=== PATIENT | male | born 1965 | race Caucasian/White ===

== ENCOUNTER 2017-02-03 12:52 | Emergency (ER) | payer SELFPAY ==
[~2017-02-03] VITALS: Ht 185.4 cm; Wt 72.6 kg
[2017-02-03 13:20] LABS: BASO # 0.1 x10^3/uL (0.0-0.2); BASO % 1 % (0-3); EOS % 0 % (0-3); HEMATOCRIT 38.9 % (39.0-53.0); HEMOGLOBIN 13.6 g/dL (13.0-17.5); LYMPH # 1.1 x10^3/uL (1.0-4.8); LYMPH % 17 % (24-48); MEAN CORPUSCULAR HEMOGLOBIN 32 pg (25-35); MEAN CORPUSCULAR HGB CONC 35 g/dL (31-37); MEAN CORPUSCULAR VOLUME 92 fL (79-100); MONO % 5 % (0-9); NEUT % 77 % (31-73); PLATELET COUNT 271 x10^3/uL (140-400); RED BLOOD COUNT 4.23 x10^6/uL (4.30-5.70); RED CELL DISTRIBUTION WIDTH 15.6 % (11.5-14.5); WHITE BLOOD COUNT 6.9 x10^3/uL (4.0-11.0)
[2017-02-03 13:30] LABS: CREATININE 0.8 mg/dL (0.7-1.3); GFR 101.9; POTASSIUM 3.5 mmol/L (3.5-5.1)
[2017-02-03 13:36] LABS: ALBUMIN 3.5 g/dL (3.4-5.0); ALBUMIN/GLOBULIN RATIO 0.9 (1.0-1.7); TOTAL BILIRUBIN 0.6 mg/dL (0.2-1.0); TOTAL PROTEIN 7.2 g/dL (6.4-8.2)
[2017-02-03] MEDS ORDERED: ONDANSETRON PF 4 MG/2 ML VIAL. IV ONE (14:00)
[2017-02-03] MEDS ORDERED: LORAZEPAM 2 MG/ML VIAL. IV ONE (14:00)
[2017-02-03] MEDS ORDERED: CHLO10CA5 PO (14:51)
--- NOTE | 2017-02-03 14:51 | PHYS DOC ---
Past Medical History Past Medical History: Hypertension Additional Past Medical Histor: seizures with withdrawal Past Surgical History: No Surgical History Additional Information: PAD SMOKER Alcohol Use: Heavy Drug Use: Benzodiazepine Social History Narrative: OXYCONTIN Adult General Chief Complaint Chief Complaint: WITHDRAWL HPI HPI Patient is a 51 year old male brought from [facility] with the complaint of withdrawal symptoms. Patient states he is withdrawing from alcohol and opiates. His last opiate dose was yesterday morning and his last drink was last night. He was taking OxyContin. He does not have chronic pain, he was "just taking it to take it". Patient checked himself into [facility] this morning and then he started having uncomfortable withdrawal symptoms so he was sent to the ED. He states in the past he was given Librium which did help him with his withdrawal symptoms. He has had a withdrawal seizure in the past from alcohol. Patient describes his current symptoms as "just feeling empty inside". He has had nausea and dry heaves but has not vomited. Patient has no past medical history, no meds. Review of Systems Review of Systems Constitutional: Denies fever or chills [] Eyes: His vision has been "wavy" HENT: Denies nasal congestion or sore throat [] Respiratory: Denies cough or shortness of breath [] Cardiovascular: Denies chest pain GI: Nausea but no vomiting : Denies dysuria or hematuria [] Musculoskeletal: Denies back pain or joint pain [] Integument: Denies rash or skin lesions [] Neurologic: Denies headache, focal weakness or sensory changes [] Current Medications Current Medications Current Medications Medications (Trade) Dose Ordered Sig/[facility] Start Time Stop Time Status Last Admin Dose Admin Lorazepam (Ativan) 2 mg 1X ONCE 02/03/17 14:00 02/03/17 14:01 DC 02/03/17 13:38 2 MG Ondansetron HCl (Zofran) 4 mg 1X ONCE 02/03/17 14:00 02/03/17 14:01 DC 02/03/17 13:36 4 MG Allergies Allergies Allergies Coded Allergies Type Severity Reaction Last Updated Verified No Known Drug Allergies 05/14/14 No Physical Exam Physical Exam Constitutional: Well developed, well nourished, no acute distress, non-toxic appearance. Alert, mentating normally. Not overtly tremulous. HENT: Normocephalic, atraumatic, bilateral external ears normal, nose normal. [ ] Eyes: conjunctiva normal, no discharge. [] Neck: Normal range of motion, no stridor. [] Cardiovascular:Heart rate regular rhythm, no murmur [] Lungs & Thorax: Bilateral breath sounds clear to auscultation [] Abdomen: Bowel sounds normal, soft, no tenderness, no masses, no pulsatile masses. [] Skin: Warm, dry, no erythema, no rash. [] Extremities: No tenderness, no cyanosis, no clubbing, ROM intact, no edema. [] Neurologic: Alert and oriented X 3, normal motor function, normal sensory function, no focal deficits noted. [] Current Patient Data Vital Signs Vital Signs Date Time Temp Pulse Resp B/P Pulse Ox O2 Delivery O2 Flow Rate FiO2 02/03/17 13:00 99.0 80 21 164/102 95 Room Air 99.0 Lab Values Laboratory Tests Test 02/03/17 13:10 White Blood Count 6.9x10^3/uL (4.0-11.0) Red Blood Count 4.23x10^6/uL (4.30-5.70) L Hemoglobin 13.6g/dL (13.0-17.5) Hematocrit 38.9% (39.0-53.0) L Mean Corpuscular Volume 92fL (79-100) Mean Corpuscular Hemoglobin 32pg (25-35) Mean Corpuscular Hemoglobin Concent 35g/dL (31-37) Red Cell Distribution Width 15.6% (11.5-14.5) H Platelet Count 271x10^3/uL (140-400) Neutrophils (%) (Auto) 77% (31-73) H Lymphocytes (%) (Auto) 17% (24-48) L Monocytes (%) (Auto) 5% (0-9) Eosinophils (%) (Auto) 0% (0-3) Basophils (%) (Auto) 1% (0-3) Neutrophils # (Auto) 5.3x10^3uL (1.8-7.7) Lymphocytes # (Auto) 1.1x10^3/uL (1.0-4.8) Monocytes # (Auto) 0.3x10^3/uL (0.0-1.1) Eosinophils # (Auto) 0.0x10^3/uL (0.0-0.7) Basophils # (Auto) 0.1x10^3/uL (0.0-0.2) Sodium Level 143mmol/L (136-145) Potassium Level 3.5mmol/L (3.5-5.1) Chloride Level 103mmol/L (98-107) Carbon Dioxide Level 29mmol/L (21-32) Anion Gap 11 (6-14) Blood Urea Nitrogen 12mg/dL (8-26) Creatinine 0.8mg/dL (0.7-1.3) Estimated GFR (Cockcroft-Gault) 101.9 BUN/Creatinine Ratio 15 (6-20) Glucose Level 135mg/dL (70-99) H Calcium Level 9.0mg/dL (8.5-10.1) Total Bilirubin 0.6mg/dL (0.2-1.0) Aspartate Amino Transferase (AST) 35U/L (15-37) Alanine Aminotransferase (ALT) 32U/L (16-63) Alkaline Phosphatase 73U/L (46-116) Total Protein 7.2g/dL (6.4-8.2) Albumin 3.5g/dL (3.4-5.0) Albumin/Globulin Ratio 0.9 (1.0-1.7) L Laboratory Tests 02/03/17 13:10 Laboratory Tests 02/03/17 13:10 EKG EKG [] Radiology/Procedures Radiology/Procedures [] Course & Med Decision Making Course & Med Decision Making Pertinent Labs and Imaging studies reviewed. (See chart for details) 51-year-old male who states he is having withdrawal symptoms after discontinuing use of opiates more than 24 hours ago and alcohol about 12 hours ago. He did this because he is trying to quit. He comes from [facility] rehabilitation. I discussed with the patient checking some labs and giving him some fluids and symptomatic treatment and he is agreeable to that plan. Labs are unremarkable. Patient was given IV Zofran, IV Ativan, and a banana bag. He tolerated that well. He'll be discharged back to [facility]. [] Dragon Disclaimer Dragon Disclaimer This electronic medical record was generated, in whole or in part, using a voice recognition dictation system. Departure Departure Impression: Primary Impression: Alcohol withdrawal Additional Impression: Opiate withdrawal Disposition: HOME, SELF-CARE Condition: IMPROVED Referrals: NO PCP (PCP) Patient Instructions: Alcohol Withdrawal, [id number] Additional Instructions: Drink plenty of fluids. I have prescribed Librium to help with withdrawal symptoms, use as directed. Scripts Chlordiazepoxide Hcl 10 Mg [id number] Mg PO Q6-8HRS PRN ALCOHOL WITHDRAWAL #20 As needed for symptoms of alcohol withdrawal Do not drink alcohol or drive while taking this medication Prov:SANAM MATTHEWS MD 02/03/17 Problem Qualifiers SANAM MATTHEWS MD Feb 03, 2017 14:51
[2017-02-03] MEDS ORDERED: MULTIVIT INFUSN,ADULT 4,VIT K 10 ML, FOLIC ACID 1 MG, THIAMINE 100 MG in IV DEXTROSE 5%... IV ONE (15:30)
[2017-02-03 16:00] VITALS: BP 159/97
== END 2017-02-03 16:40 | disposition home or self-care (01) ==
LOC: ER 12:52
DX: F10.239 Alcohol dependence with withdrawal, unspecified (principal); F11.23 Opioid dependence with withdrawal; I10 Essential (primary) hypertension; F17.200 Nicotine dependence, unspecified, uncomplicated; F19.10 Other psychoactive substance abuse, uncomplicated
CPT/HCPCS: 36415; 80053; 85027; 96365; 96375; 99284; J2060; J2405

== ENCOUNTER 2017-04-16 17:30 | Emergency (ER) | payer SELFPAY ==
[~2017-04-16] VITALS: Ht 185.4 cm; Wt 74.8 kg
[~2017-04-16 17:30] MED LIST: CHLO10CA5 PO
[2017-04-16 17:49] VITALS: BP 149/86
--- NOTE | 2017-04-16 17:51 | PHYS DOC ---
Past Medical History Past Medical History: Hypertension Additional Past Medical Histor: seizures with withdrawal Past Surgical History: No Surgical History Alcohol Use: Heavy Drug Use: Benzodiazepine Adult General Chief Complaint Chief Complaint: LOWEREXTREMITY INJURY HPI HPI Patient is a 51 year old male with history of hypertension who presents today with moderate pain on his left Achilles tendon region that began an hour and a half ago after he tripped hyper -extending his left foot and fell. Patient states he heard a snap sound from his Achilles tendon region. Patient states he states he can barely walk on his left lower extremity. Review of Systems Review of Systems Constitutional: Denies fever or chills [] Eyes: Denies change in visual acuity, redness, or eye pain [] Musculoskeletal: moderate pain on his left Achilles tendon region Integument: Denies rash or skin lesions [] Neurologic: Denies headache, focal weakness or sensory changes [] Endocrine: Denies polyuria or polydipsia [] Allergies Allergies Allergies Coded Allergies Type Severity Reaction Last Updated Verified No Known Drug Allergies 05/14/14 No Physical Exam Physical Exam Constitutional: Well developed, well nourished, no acute distress, non-toxic appearance. [] HENT: Normocephalic, atraumatic, bilateral external ears normal, oropharynx moist, no oral exudates, nose normal. [] Eyes: PERRLA, EOMI, conjunctiva normal, no discharge. [] Skin: Warm, dry, no erythema, no rash. [] Back: No tenderness, no CVA tenderness. [] Extremities: Left lower extremity with moderate soft tissue swelling along the Achilles tendon. Tenderness on palpation of the left Achilles tendon region. Patient was laid on his stomach. The cuff muscle was pushed/pressed down, patient barely had any flexion of the left foot. Limited range of motion to the left ankle due to pain. +2 left pedal pulse. Cap refill less than 2 seconds the left lower extremity. Sensation intact to the left lower extremity. Neurologic: Alert and oriented X 3, normal motor function, normal sensory function, no focal deficits noted. [] Psychologic: Affect normal, judgement normal, mood normal. [] Current Patient Data Vital Signs Vital Signs Date Time Temp Pulse Resp B/P (MAP) Pulse Ox O2 Delivery O2 Flow Rate FiO2 04/16/17 17:49 98.5 90 22 99 Room Air 98.5 EKG EKG [] Radiology/Procedures Radiology/Procedures []Left ankle x-rays interpreted by Dr. Amos were negative for any acute findings. Course & Med Decision Making Course & Med Decision Making Pertinent Labs and Imaging studies reviewed. (See chart for details) Patient is in the ED with left Achilles tendon pain that began after he tripped hyperextending his left foot. He states he heard a snap sound from the left Achilles tendon region. Patient is barely able to flex the left foot when the cuff muscle was pressed, I suspect he has Achilles tendon rupture.. Left ankle x -rays interpreted by Dr. Amos were negative for any acute findings. 18:[address] Hidalgo who requested we splint patient in flex position and he can follow up with the office on Wednesday. Patient has to call the office on Wednesday and insist on being seen. Patient was placed in a posterior leg splint by the nuclear chemistry technician, neurovascular exam done by me post splinting is normal, cap refill <2 seconds. Patient's splint was well padded per Ortho's request. Ice elevation encouraged. Discharged with naproxen. Dragon Disclaimer Dragon Disclaimer This electronic medical record was generated, in whole or in part, using a voice recognition dictation system. Departure Departure Impression: Primary Impression: Fall from standing Additional Impression: Achilles tendon rupture Disposition: HOME, SELF-CARE Condition: STABLE Referrals: NO PCP (PCP) MIKY HIDALGO MD call the office Wednesday and request to be seen the same day. Patient Instructions: Achilles Tendon Rupture (Partial, Incomplete) Additional Instructions: You were seen for possible Achilles tendon rupture. We'll put you know splint. Ice and elevate the extremity. Do not bear weight on the left lower extremity. Please contact the orthopedic doctor provided on Wednesday. She requested you let to the office know you are supposed to be seen the same day you call which is be Wednesday and they will give you an appointment. Scripts Naproxen (NAPROXEN) 500 Mg Tablet.dr 1 TAB PO BID, #60 TAB 2 Refills Prov: TANJA FLORENCE DICTATING MACHINE MECHANIC 04/16/17 Problem Qualifiers Primary Impression: Fall from standing Encounter type: initial encounter Qualified Codes: W19.XXXA - Unspecified fall, initial encounter Additional Impression: Achilles tendon rupture Encounter type: initial encounter Laterality: left Qualified Codes: S86.012A - Strain of left Achilles tendon, initial encounter MUTUNGA,TANJA DICTATING MACHINE MECHANIC Apr 16, 2017 17:51
[2017-04-16] MEDS ORDERED: NAPR500T8 PO (18:37)
--- NOTE | 2017-04-17 09:07 | RAD ---
Left ankle, 3 views, 04/16/2017: History: Fall, ankle pain A well-defined calcific density at the tip of the lateral malleolus is compatible with a nonunited accessory ossification center or an old nonunited fracture. There is a tiny periarticular calcification projected over the posterior aspect of the tibiotalar articulation. No definite acute fracture or dislocation is identified. There is moderate soft tissue swelling, particularly over the lateral malleolus as well as posteriorly in the Achilles tendon region. IMPRESSION: No acute bony abnormality is detected.
== END 2017-04-16 19:11 | disposition home or self-care (01) ==
LOC: ER 17:30
DX: S86.012A Strain of left Achilles tendon, initial encounter (principal); I10 Essential (primary) hypertension; F10.10 Alcohol abuse, uncomplicated; F19.10 Other psychoactive substance abuse, uncomplicated; W01.0XXA Fall on same level from slipping, tripping and stumbling without subsequent striking against object, initial encounter; Y93.89 Activity, other specified; Y99.8 Other external cause status; Y92.89 Other specified places as the place of occurrence of the external cause
CPT/HCPCS: 29515; 73610; 99284-25

== ENCOUNTER 2018-07-07 15:52 | Inpatient (IN) | payer SELFPAY ==
[~2018-07-07] VITALS: Ht 185.4 cm; Wt 74.6 kg
[~2018-07-07 15:52] MED LIST changes: +NAPR500T8 PO
[2018-07-07 17:55] LABS: BARBITURATES NEG (NEG); BENZODIAZEPINES NEG (NEG); CANNABINOIDS POS (NEG); COCAINE NEG (NEG); METHADONE NEG (NEG); OPIATES NEG (NEG); PHENCYCLIDINE NEG (NEG)
[2018-07-07 17:56] LABS: AMPHETAMINE/METHAMPHETAMINE NEG (NEG)
[2018-07-07] MEDS ORDERED: MULTIVIT INFUSN,ADULT 4,VIT K 10 ML, THIAMINE INJ 100 MG, FOLIC ACID INJ 1 MG in IV NOR... IV SCH (18:00)
[2018-07-07] MEDS ORDERED: ONDANSETRON PF 4 MG/2 ML VIAL. IV PRN (18:15)
[2018-07-07 18:17] LABS: BASO # 0.1 x10^3/uL (0.0-0.2); BASO % 1 % (0-3); EOS % 0 % (0-3); HEMATOCRIT 38.6 % (39.0-53.0); HEMOGLOBIN 13.2 g/dL (13.0-17.5); LYMPH # 1.6 x10^3/uL (1.0-4.8); LYMPH % 19 % (24-48); MEAN CORPUSCULAR HEMOGLOBIN 31 pg (25-35); MEAN CORPUSCULAR HGB CONC 34 g/dL (31-37); MEAN CORPUSCULAR VOLUME 92 fL (79-100); MONO # 0.5 x10^3/uL (0.0-1.1); MONO % 6 % (0-9); NEUT # 6.2 x10^3uL (1.8-7.7); NEUT % 74 % (31-73); PLATELET COUNT 250 x10^3/uL (140-400); RED BLOOD COUNT 4.22 x10^6/uL (4.30-5.70); RED CELL DISTRIBUTION WIDTH 16.2 % (11.5-14.5); WHITE BLOOD COUNT 8.4 x10^3/uL (4.0-11.0)
[2018-07-07 18:28] LABS: CALCIUM 9.2 mg/dL (8.5-10.1); CREATININE 0.9 mg/dL (0.7-1.3); GFR 88.3; POTASSIUM 3.6 mmol/L (3.5-5.1)
[2018-07-07 18:34] LABS: ALBUMIN 3.7 g/dL (3.4-5.0); TOTAL BILIRUBIN 1.8 mg/dL (0.2-1.0); TOTAL PROTEIN 7.3 g/dL (6.4-8.2)
[2018-07-07] MEDS: IV NORMAL SALINE 1000ML BAG 1,000 ML IV SCH (20:14)
[2018-07-07] MEDS ORDERED: ACETAMINOPHEN 325 MG TABLET. PO PRN (21:00)
[2018-07-07] MEDS ORDERED: cloNIDine HCL 0.1 MG TABLET PO ONE (21:00)
--- NOTE | 2018-07-07 21:01 | PDOC1 ---
History and Physical Date of Admission Date of Admission DATE: 07/07/18 TIME: 21:00 Identification/Chief Complaint Chief Complaint presents with alcohol withdrawal symptoms, wants to stop etoh, seek treatment for substance abuse, unable to hold a job now Past Medical History Cardiovascular: HTN Pulmonary: No pertinent hx CENTRAL NERVOUS SYSTEM: Seizure GI: GERD Heme/Onc: No pertinent hx Hepatobiliary: No pertinent hx Psych: Anxiety Musculoskeletal: Other Rheumatologic: No pertinent hx Infectious disease: No pertinent hx Endocrine: No pertinent hx Past Surgical History Past Surgical History: No pertinent history Family History Family History: Alcohol Abuse, Depression, Heart Disease Family History: Parent Social History Smoke: 1 pack per day ALCOHOL: heavy Drugs: Marijuana, Other Current Problem List Problem List Problems Medical Problems: (1) Alcohol withdrawal Status: Acute Current Medications Current Medications Current Medications Multivitamins 10 ml/Thiamine HCl 100 mg/Folic Acid 1 mg/Sodium Chloride 1,011.2 ml @ 100 mls/ hr DAILY IV Last administered on 07/07/18at 18:10; Start at 18:00; Stop 07/11/18 at 19:07 Lorazepam (Ativan) 4 mg PRN Q1HR PRN PO For CIWA 8-14; Start 07/07/18 at 17:45 Ondansetron HCl (Zofran) 4 mg PRN Q8HRS PRN IV NAUSEA/VOMITING; Start 07/07/18 at 18:15; Stop 07/08/18 at 18:14 Sodium Chloride 1,000 ml @ 125 mls/hr Q8H IV Last administered on 07/07/18at 20 :14; Start 07/07/18 at 18:11; Stop 07/08/18 at 18:10 Active Scripts Active Naproxen 500 Mg Tablet.dr 1 Tab PO BID Chlordiazepoxide Hcl 10 Mg Capsule 10 Mg PO Q6-8HRS PRN As needed for symptoms of alcohol withdrawal Do not drink alcohol or drive while taking this medication Reported No Known Medications Prior To Admisstion (Info) Each 1 Each MC Allergies Allergies: Coded Allergies: No Known Drug Allergies (Unverified , 05/14/14) ROS General: YES: Fatigue, Malaise PSYCHOLOGICAL ROS: YES: Anxiety, Depression Eyes: No Blurry vision, No Decreased vision, No Double vision, No Dry eyes, No Excessive tearing, No Eye Pain, No Itchy Eyes, No Loss of vision, No Photophobia , No Scotomata, No Uses contacts, No Uses glasses, No Other ALLERGY AND IMMUNOLOGY: No: Hives, Insect Bite Sensitivity, Itchy/Watery Eyes, Nasal Congestion, Post Nasal Drip, Seasonal Allergies, Other ENDOCRINE: No: Breast Changes, Galactorrhea, Hair Pattern Changes, Hot Flashes , Malaise/lethargy, Mood Swings, Palpitations, Polydipsia/polyuria, Skin Changes , Temperature Intolerance, Unexpected Weight Changes, Other Breast: No New/Changing Breast Lumps, No Nipple changes, No Nipple discharge, No Other Respiratory: No: Cough, Hemoptysis, Orthopnea, Pleuritic Pain, Shortness of breath, SOB with excertion, Sputum Changes, Stridor, Tachypnea, Wheezing, Other Cardiovascular: yes Palpitations Gastrointestinal: Yes Nausea Genitourinary: No Dysuria, No Frequency, No Incontinence, No Hematuria, No Retention, No Discharge, No Urgency, No Pain, No Flank Pain, No Other, No , No , No , No , No , No , No Neurological: Yes Gait Disturbance Physical Exam Physical Exam Review of Systems Review of Systems Constitutional: Denies fever or chills [] Eyes: Denies change in visual acuity, redness, or eye pain [] Musculoskeletal: moderate pain on his left Achilles tendon region Integument: Denies rash or skin lesions [] Neurologic: Denies headache, focal weakness or sensory changes [] Endocrine: Denies polyuria or polydipsia MILD TREMOR POS 14 PT ROS OTHERWISE NEG[] Allergies Allergies Allergies Coded Allergies Type Severity Reaction Last Updated Verified No Known Drug Allergies 05/14/14 No Physical Exam Physical Exam Constitutional: Well developed, well nourished, MILD acute distress, non-toxic appearance. [] HENT: Normocephalic, atraumatic, bilateral external ears normal, oropharynx moist, no oral exudates, nose normal. [] Eyes: PERRLA, EOMI, conjunctiva normal, no discharge. [] Skin: Warm, dry, no erythema, no rash. [] Back: No tenderness, no CVA tenderness. [] Extremities: Sensation intact . Neurologic: Alert and oriented X 3, normal motor function, normal sensory function, no focal deficits noted. [] Psychologic: Affect normal, judgement normal, mood ANXIOUS [] General: Alert, Oriented X3, Cooperative, mild distress HEENT: Atraumatic, PERRLA, EOMI, Mucous membr. moist/pink Lungs: Clear to auscultation, Normal air movement Heart: S1S2, RRR, no thrills, no gallops Breasts: Not examined Abdomen: Normal bowel sounds, Soft, No tenderness Rectal Exam: not examined Skin: No breakdown Neuro: Normal speech, Cranial nerves 3-12 NL Psych/Mental Status: Mental status NL Vitals Vitals Vital Signs Date Time Temp Pulse Resp B/P (MAP) Pulse Ox O2 Delivery O2 Flow Rate FiO2 07/07/18 19:30 60 15 147/97 (114) 98 Room Air 07/07/18 17:34 98.6 98.6 Labs Labs Laboratory Tests Test 07/07/18 17:25 07/07/18 18:10 Urine Opiates Screen Neg (NEG) Urine Methadone Screen Neg (NEG) Urine Barbiturates Neg (NEG) Urine Phencyclidine Screen Neg (NEG) Urine Amphetamine/Methamphetamine Neg (NEG) Urine Benzodiazepines Screen Neg (NEG) Urine Cocaine Screen Neg (NEG) Urine Cannabinoids Screen Pos (NEG) Urine Ethyl Alcohol Neg (NEG) White Blood Count 8.4 x10^3/uL (4.0-11.0) Red Blood Count 4.22 x10^6/uL (4.30-5.70) Hemoglobin 13.2 g/dL (13.0-17.5) Hematocrit 38.6 % (39.0-53.0) Mean Corpuscular Volume 92 fL (79-100) Mean Corpuscular Hemoglobin 31 pg (25-35) Mean Corpuscular Hemoglobin Concent 34 g/dL (31-37) Red Cell Distribution Width 16.2 % (11.5-14.5) Platelet Count 250 x10^3/uL (140-400) Neutrophils (%) (Auto) 74 % (31-73) Lymphocytes (%) (Auto) 19 % (24-48) Monocytes (%) (Auto) 6 % (0-9) Eosinophils (%) (Auto) 0 % (0-3) Basophils (%) (Auto) 1 % (0-3) Neutrophils # (Auto) 6.2 x10^3uL (1.8-7.7) Lymphocytes # (Auto) 1.6 x10^3/uL (1.0-4.8) Monocytes # (Auto) 0.5 x10^3/uL (0.0-1.1) Eosinophils # (Auto) 0.0 x10^3/uL (0.0-0.7) Basophils # (Auto) 0.1 x10^3/uL (0.0-0.2) Sodium Level 141 mmol/L (136-145) Potassium Level 3.6 mmol/L (3.5-5.1) Chloride Level 102 mmol/L (98-107) Carbon Dioxide Level 28 mmol/L (21-32) Anion Gap 11 (6-14) Blood Urea Nitrogen 20 mg/dL (8-26) Creatinine 0.9 mg/dL (0.7-1.3) Estimated GFR (Cockcroft-Gault) 88.3 BUN/Creatinine Ratio 22 (6-20) Glucose Level 88 mg/dL (70-99) Calcium Level 9.2 mg/dL (8.5-10.1) Total Bilirubin 1.8 mg/dL (0.2-1.0) Aspartate Amino Transf (AST/SGOT) 29 U/L (15-37) Alanine Aminotransferase (ALT/SGPT) 29 U/L (16-63) Alkaline Phosphatase 77 U/L (46-116) Ammonia 12 mcmol/L (11-34) Total Protein 7.3 g/dL (6.4-8.2) Albumin 3.7 g/dL (3.4-5.0) Albumin/Globulin Ratio 1.0 (1.0-1.7) Ethyl Alcohol Level < 10 mg/dL (0-10) Laboratory Tests Test 07/07/18 17:25 07/07/18 18:10 Urine Opiates Screen Neg (NEG) Urine Methadone Screen Neg (NEG) Urine Barbiturates Neg (NEG) Urine Phencyclidine Screen Neg (NEG) Urine Amphetamine/Methamphetamine Neg (NEG) Urine Benzodiazepines Screen Neg (NEG) Urine Cocaine Screen Neg (NEG) Urine Cannabinoids Screen Pos (NEG) Urine Ethyl Alcohol Neg (NEG) White Blood Count 8.4 x10^3/uL (4.0-11.0) Red Blood Count 4.22 x10^6/uL (4.30-5.70) Hemoglobin 13.2 g/dL (13.0-17.5) Hematocrit 38.6 % (39.0-53.0) Mean Corpuscular Volume 92 fL (79-100) Mean Corpuscular Hemoglobin 31 pg (25-35) Mean Corpuscular Hemoglobin Concent 34 g/dL (31-37) Red Cell Distribution Width 16.2 % (11.5-14.5) Platelet Count 250 x10^3/uL (140-400) Neutrophils (%) (Auto) 74 % (31-73) Lymphocytes (%) (Auto) 19 % (24-48) Monocytes (%) (Auto) 6 % (0-9) Eosinophils (%) (Auto) 0 % (0-3) Basophils (%) (Auto) 1 % (0-3) Neutrophils # (Auto) 6.2 x10^3uL (1.8-7.7) Lymphocytes # (Auto) 1.6 x10^3/uL (1.0-4.8) Monocytes # (Auto) 0.5 x10^3/uL (0.0-1.1) Eosinophils # (Auto) 0.0 x10^3/uL (0.0-0.7) Basophils # (Auto) 0.1 x10^3/uL (0.0-0.2) Sodium Level 141 mmol/L (136-145) Potassium Level 3.6 mmol/L (3.5-5.1) Chloride Level 102 mmol/L (98-107) Carbon Dioxide Level 28 mmol/L (21-32) Anion Gap 11 (6-14) Blood Urea Nitrogen 20 mg/dL (8-26) Creatinine 0.9 mg/dL (0.7-1.3) Estimated GFR (Cockcroft-Gault) 88.3 BUN/Creatinine Ratio 22 (6-20) Glucose Level 88 mg/dL (70-99) Calcium Level 9.2 mg/dL (8.5-10.1) Total Bilirubin 1.8 mg/dL (0.2-1.0) Aspartate Amino Transf (AST/SGOT) 29 U/L (15-37) Alanine Aminotransferase (ALT/SGPT) 29 U/L (16-63) Alkaline Phosphatase 77 U/L (46-116) Ammonia 12 mcmol/L (11-34) Total Protein 7.3 g/dL (6.4-8.2) Albumin 3.7 g/dL (3.4-5.0) Albumin/Globulin Ratio 1.0 (1.0-1.7) Ethyl Alcohol Level < 10 mg/dL (0-10) VTE Prophylaxis Ordered VTE Prophylaxis Devices: Yes VTE Pharmacological Prophylaxi: Yes Assessment/Plan Assessment/Plan IMPRESSION 1. SEVERE ETOH ABUSE 2. Depression 3. htn 4. THC abuse 5. tobacco abuse disorder 6. hx dt's plan alcohol withdrawal protocol bp control iv protonix banana bag iv ativan prn sq lovenox dvt prophylaxis tele SS CONSULT SPENCER ZAVALETA MD Jul 07, 2018 21:01
[2018-07-07] MEDS ORDERED: LORazepam 1 MG TABLET PO SCH (21:15)
[2018-07-07] MEDS ORDERED: cloNIDine HCL 0.1 MG TABLET PO PRN (21:15)
[2018-07-07] MEDS ORDERED: LORazepam 1 MG TABLET PO PRN (21:15)
[2018-07-07] MEDS ORDERED: PANTOPRAZOLE IV PUSH 40 MG VIAL. IVP ONE (21:15)
[2018-07-07] MEDS: NICOTINE 21MG PATCH. TD SCH (21:26)
[2018-07-07] MEDS: traZODone 100 MG TABLET. PO SCH (21:27)
[2018-07-07] MEDS: LORazepam 1 MG TABLET PO PRN (21:28)
[2018-07-07 22:40] VITALS: BP 129/83
[2018-07-08] MEDS: IV NORMAL SALINE 1000ML BAG 1,000 ML IV SCH ×2 (01:46→11:16)
[2018-07-08] MEDS: LORazepam 1 MG TABLET PO PRN ×3 (01:46→16:51)
[2018-07-08 03:00] VITALS: BP 122/90
[2018-07-08 07:00] VITALS: BP 117/64
[2018-07-08] MEDS: PANTOPRAZOLE IV PUSH 40 MG VIAL. IVP SCH (08:37)
[2018-07-08] MEDS: NICOTINE 21MG PATCH. TD SCH (08:45)
[2018-07-08] MEDS ORDERED: MULTIVIT INFUSN,ADULT 4,VIT K 10 ML, THIAMINE INJ 100 MG, FOLIC ACID INJ 1 MG in IV NOR... IV SCH (09:00)
[2018-07-08] MEDS ORDERED: PNEUMOC CONJ VACC 23-VALENT 0.5 ML VIAL. VAX IM ONE (09:00)
[2018-07-08 09:38] LABS: BASO % 1 % (0-3); EOS # 0.1 x10^3/uL (0.0-0.7); EOS % 2 % (0-3); HEMATOCRIT 38.2 % (39.0-53.0); HEMOGLOBIN 13.1 g/dL (13.0-17.5); LYMPH # 1.4 x10^3/uL (1.0-4.8); LYMPH % 29 % (24-48); MEAN CORPUSCULAR HEMOGLOBIN 32 pg (25-35); MEAN CORPUSCULAR HGB CONC 34 g/dL (31-37); MEAN CORPUSCULAR VOLUME 92 fL (79-100); MONO # 0.4 x10^3/uL (0.0-1.1); MONO % 7 % (0-9); NEUT % 61 % (31-73); PLATELET COUNT 230 x10^3/uL (140-400); RED BLOOD COUNT 4.14 x10^6/uL (4.30-5.70); RED CELL DISTRIBUTION WIDTH 15.8 % (11.5-14.5)
--- NOTE | 2018-07-08 09:43 | PDOC ---
PROGRESS NOTES Chief Complaint Chief Complaint 1. ETOH ABUSE, dependence, admit with withdrawl 2. Depression, major 3. htn 4. THC abuse 5. tobacco abuse disorder 6. hx dt's History of Present Illness History of Present Illness alcohol withdrawal protocol, cont bp control better iv protonix banana bag iv ativan prn sq lovenox dvt prophylaxis tele Vitals Vitals Vital Signs Date Time Temp Pulse Resp B/P (MAP) Pulse Ox O2 Delivery O2 Flow Rate FiO2 07/08/18 07:00 98.0 55 18 117/64 (81) 96 Room Air 98.0 Physical Exam General: Alert, Oriented X3, Cooperative, No acute distress Heart: Regular rate Lungs: Clear, Other Abdomen: Normal bowel sounds, Soft, No tenderness Skin: No breakdown Labs LABS Laboratory Tests Test 07/07/18 17:25 07/07/18 18:10 Urine Opiates Screen Neg (NEG) Urine Methadone Screen Neg (NEG) Urine Barbiturates Neg (NEG) Urine Phencyclidine Screen Neg (NEG) Urine Amphetamine/Methamphetamine Neg (NEG) Urine Benzodiazepines Screen Neg (NEG) Urine Cocaine Screen Neg (NEG) Urine Cannabinoids Screen Pos (NEG) Urine Ethyl Alcohol Neg (NEG) White Blood Count 8.4 x10^3/uL (4.0-11.0) Red Blood Count 4.22 x10^6/uL (4.30-5.70) Hemoglobin 13.2 g/dL (13.0-17.5) Hematocrit 38.6 % (39.0-53.0) Mean Corpuscular Volume 92 fL (79-100) Mean Corpuscular Hemoglobin 31 pg (25-35) Mean Corpuscular Hemoglobin Concent 34 g/dL (31-37) Red Cell Distribution Width 16.2 % (11.5-14.5) Platelet Count 250 x10^3/uL (140-400) Neutrophils (%) (Auto) 74 % (31-73) Lymphocytes (%) (Auto) 19 % (24-48) Monocytes (%) (Auto) 6 % (0-9) Eosinophils (%) (Auto) 0 % (0-3) Basophils (%) (Auto) 1 % (0-3) Neutrophils # (Auto) 6.2 x10^3uL (1.8-7.7) Lymphocytes # (Auto) 1.6 x10^3/uL (1.0-4.8) Monocytes # (Auto) 0.5 x10^3/uL (0.0-1.1) Eosinophils # (Auto) 0.0 x10^3/uL (0.0-0.7) Basophils # (Auto) 0.1 x10^3/uL (0.0-0.2) Sodium Level 141 mmol/L (136-145) Potassium Level 3.6 mmol/L (3.5-5.1) Chloride Level 102 mmol/L (98-107) Carbon Dioxide Level 28 mmol/L (21-32) Anion Gap 11 (6-14) Blood Urea Nitrogen 20 mg/dL (8-26) Creatinine 0.9 mg/dL (0.7-1.3) Estimated GFR (Cockcroft-Gault) 88.3 BUN/Creatinine Ratio 22 (6-20) Glucose Level 88 mg/dL (70-99) Calcium Level 9.2 mg/dL (8.5-10.1) Total Bilirubin 1.8 mg/dL (0.2-1.0) Aspartate Amino Transf (AST/SGOT) 29 U/L (15-37) Alanine Aminotransferase (ALT/SGPT) 29 U/L (16-63) Alkaline Phosphatase 77 U/L (46-116) Ammonia 12 mcmol/L (11-34) Total Protein 7.3 g/dL (6.4-8.2) Albumin 3.7 g/dL (3.4-5.0) Albumin/Globulin Ratio 1.0 (1.0-1.7) Ethyl Alcohol Level < 10 mg/dL (0-10) Review of Systems Review of Systems no n,.v.d Assessment and Plan Assessmemt and Plan Problems Medical Problems: (1) Alcohol withdrawal Status: Acute Comment Review of Relevant I have reviewed the following items charley (where applicable) has been applied. Labs Laboratory Tests Test 07/07/18 17:25 07/07/18 18:10 Urine Opiates Screen Neg (NEG) Urine Methadone Screen Neg (NEG) Urine Barbiturates Neg (NEG) Urine Phencyclidine Screen Neg (NEG) Urine Amphetamine/Methamphetamine Neg (NEG) Urine Benzodiazepines Screen Neg (NEG) Urine Cocaine Screen Neg (NEG) Urine Cannabinoids Screen Pos (NEG) Urine Ethyl Alcohol Neg (NEG) White Blood Count 8.4 x10^3/uL (4.0-11.0) Red Blood Count 4.22 x10^6/uL (4.30-5.70) Hemoglobin 13.2 g/dL (13.0-17.5) Hematocrit 38.6 % (39.0-53.0) Mean Corpuscular Volume 92 fL (79-100) Mean Corpuscular Hemoglobin 31 pg (25-35) Mean Corpuscular Hemoglobin Concent 34 g/dL (31-37) Red Cell Distribution Width 16.2 % (11.5-14.5) Platelet Count 250 x10^3/uL (140-400) Neutrophils (%) (Auto) 74 % (31-73) Lymphocytes (%) (Auto) 19 % (24-48) Monocytes (%) (Auto) 6 % (0-9) Eosinophils (%) (Auto) 0 % (0-3) Basophils (%) (Auto) 1 % (0-3) Neutrophils # (Auto) 6.2 x10^3uL (1.8-7.7) Lymphocytes # (Auto) 1.6 x10^3/uL (1.0-4.8) Monocytes # (Auto) 0.5 x10^3/uL (0.0-1.1) Eosinophils # (Auto) 0.0 x10^3/uL (0.0-0.7) Basophils # (Auto) 0.1 x10^3/uL (0.0-0.2) Sodium Level 141 mmol/L (136-145) Potassium Level 3.6 mmol/L (3.5-5.1) Chloride Level 102 mmol/L (98-107) Carbon Dioxide Level 28 mmol/L (21-32) Anion Gap 11 (6-14) Blood Urea Nitrogen 20 mg/dL (8-26) Creatinine 0.9 mg/dL (0.7-1.3) Estimated GFR (Cockcroft-Gault) 88.3 BUN/Creatinine Ratio 22 (6-20) Glucose Level 88 mg/dL (70-99) Calcium Level 9.2 mg/dL (8.5-10.1) Total Bilirubin 1.8 mg/dL (0.2-1.0) Aspartate Amino Transf (AST/SGOT) 29 U/L (15-37) Alanine Aminotransferase (ALT/SGPT) 29 U/L (16-63) Alkaline Phosphatase 77 U/L (46-116) Ammonia 12 mcmol/L (11-34) Total Protein 7.3 g/dL (6.4-8.2) Albumin 3.7 g/dL (3.4-5.0) Albumin/Globulin Ratio 1.0 (1.0-1.7) Ethyl Alcohol Level < 10 mg/dL (0-10) Laboratory Tests Test 07/07/18 17:25 07/07/18 18:10 Urine Opiates Screen Neg (NEG) Urine Methadone Screen Neg (NEG) Urine Barbiturates Neg (NEG) Urine Phencyclidine Screen Neg (NEG) Urine Amphetamine/Methamphetamine Neg (NEG) Urine Benzodiazepines Screen Neg (NEG) Urine Cocaine Screen Neg (NEG) Urine Cannabinoids Screen Pos (NEG) Urine Ethyl Alcohol Neg (NEG) White Blood Count 8.4 x10^3/uL (4.0-11.0) Red Blood Count 4.22 x10^6/uL (4.30-5.70) Hemoglobin 13.2 g/dL (13.0-17.5) Hematocrit 38.6 % (39.0-53.0) Mean Corpuscular Volume 92 fL (79-100) Mean Corpuscular Hemoglobin 31 pg (25-35) Mean Corpuscular Hemoglobin Concent 34 g/dL (31-37) Red Cell Distribution Width 16.2 % (11.5-14.5) Platelet Count 250 x10^3/uL (140-400) Neutrophils (%) (Auto) 74 % (31-73) Lymphocytes (%) (Auto) 19 % (24-48) Monocytes (%) (Auto) 6 % (0-9) Eosinophils (%) (Auto) 0 % (0-3) Basophils (%) (Auto) 1 % (0-3) Neutrophils # (Auto) 6.2 x10^3uL (1.8-7.7) Lymphocytes # (Auto) 1.6 x10^3/uL (1.0-4.8) Monocytes # (Auto) 0.5 x10^3/uL (0.0-1.1) Eosinophils # (Auto) 0.0 x10^3/uL (0.0-0.7) Basophils # (Auto) 0.1 x10^3/uL (0.0-0.2) Sodium Level 141 mmol/L (136-145) Potassium Level 3.6 mmol/L (3.5-5.1) Chloride Level 102 mmol/L (98-107) Carbon Dioxide Level 28 mmol/L (21-32) Anion Gap 11 (6-14) Blood Urea Nitrogen 20 mg/dL (8-26) Creatinine 0.9 mg/dL (0.7-1.3) Estimated GFR (Cockcroft-Gault) 88.3 BUN/Creatinine Ratio 22 (6-20) Glucose Level 88 mg/dL (70-99) Calcium Level 9.2 mg/dL (8.5-10.1) Total Bilirubin 1.8 mg/dL (0.2-1.0) Aspartate Amino Transf (AST/SGOT) 29 U/L (15-37) Alanine Aminotransferase (ALT/SGPT) 29 U/L (16-63) Alkaline Phosphatase 77 U/L (46-116) Ammonia 12 mcmol/L (11-34) Total Protein 7.3 g/dL (6.4-8.2) Albumin 3.7 g/dL (3.4-5.0) Albumin/Globulin Ratio 1.0 (1.0-1.7) Ethyl Alcohol Level < 10 mg/dL (0-10) Medications Current Medications Multivitamins 10 ml/Thiamine HCl 100 mg/Folic Acid 1 mg/Sodium Chloride 1,011.2 ml @ 100 mls/ hr DAILY IV Last administered on 07/07/18at 18:10; Start at 18:00; Stop 07/08/18 at 09:03; Status DC Lorazepam (Ativan) 4 mg PRN Q1HR PRN PO For CIWA 8-14 Last administered on 07/08at 01:46; Start 07/07/18 at 17:45 Ondansetron HCl (Zofran) 4 mg PRN Q8HRS PRN IV NAUSEA/VOMITING; Start 07/07/18 at 18:15; Stop 07/08/18 at 18:14 Sodium Chloride 1,000 ml @ 125 mls/hr Q8H IV Last administered on 07/08/18at 01 :46; Start 07/07/18 at 18:11; Stop 07/08/18 at 18:10 Multivitamins 10 ml/Thiamine HCl 100 mg/Folic Acid 1 mg/Sodium Chloride 1,011.2 ml @ 100 mls/ hr DAILY IV Last administered on 07/08/18at 08:38; Start at 09:00; Stop 07/12/18 at 19:07 Multivitamins (Thera M Plus) 1 tab DAILY PO ; Start 07/12/18 at 09:00 Folic Acid (Folic Acid) 1 mg DAILY PO ; Start 07/12/18 at 09:00 Thiamine Mononitrate (Vitamin B-1) 100 mg DAILY PO ; Start 07/12/18 at 09:00 Lorazepam (Ativan) 2 mg Q6H PO ; Start 07/07/18 at 21:15; Stop 07/09/18 at 03:16 ; Status UNV Lorazepam (Ativan) 4 mg PRN Q1HR PRN PO For CIWA 8-14; Start 07/07/18 at 21:15 Lorazepam (Ativan) 8 mg PRN Q1HR PRN PO For CIWA 15 or greater; Start 07/07/18 at 21:15 Lorazepam (Ativan) 2 mg PRN Q1HR PRN IV For CIWA 8-14 Last administered on 07/08at 08:45; Start 07/07/18 at 21:15 Clonidine HCl (Catapres) 0.1 mg PRN Q1HR PRN PO SBP > 180 or DBP > 100, MRX3; Start 07/07/18 at 21:15 Lorazepam (Ativan) 2 mg PRN Q15MIN PRN IV ANXIETY / AGITATION; Start 07/07/18 at 21:15 Lorazepam (Ativan) 4 mg PRN Q15MIN PRN IV ANXIETY / AGITATION; Start 07/07/18 at 21:15 Nicotine (Nicoderm Cq 21mg) 1 patch DAILY TD Last administered on 07/08/18at 08: 45; Start 07/07/18 at 21:00 Acetaminophen (Tylenol) 650 mg PRN Q6HRS PRN PO pain Last administered on at 21:27; Start 07/07/18 at 21:00 Trazodone HCl (Desyrel) 100 mg QHS PO Last administered on 07/07/18at 21:27; Start 07/07/18 at 21:00 Clonidine HCl (Catapres) 0.1 mg 1X ONCE PO Last administered on 07/07/18at 21: 27; Start 07/07/18 at 21:00; Stop 07/07/18 at 21:11; Status DC Pneumococcal Polyvalent Vaccine (Pneumovax 23) 0.5 ml ONCE ONCE VAX IM ; Start 07/08/18 at 09:00; Stop 07/08/18 at 09:00; Status DC Pantoprazole Sodium (PROTONIX VIAL for IV PUSH) 40 mg 1X ONCE IVP Last administered on 07/07/18at 21:31; Start 07/07/18 at 21:15; Stop 07/07/18 at 21:17 ; Status DC Pantoprazole Sodium (PROTONIX VIAL for IV PUSH) 40 mg DAILYAC IVP Last administered on 07/08/18at 08:37; Start 07/08/18 at 07:30 Influenza Virus Vaccine (Afluria Trivalent 8013-1727 Syringe) 0.5 ml ONCE ONCE VAX IM Last administered on 07/08/18at 08:48; Start 07/08/18 at 09:00; Stop at 09:01; Status DC Active Scripts Active Naproxen 500 Mg Tablet.dr 1 Tab PO BID Chlordiazepoxide Hcl 10 Mg Capsule 10 Mg PO Q6-8HRS PRN As needed for symptoms of alcohol withdrawal Do not drink alcohol or drive while taking this medication Reported No Known Medications Prior To Admisstion (Info) Each 1 Each Vitals/I & O Vital Sign - Last 24 Hours 07/07/18 07/07/18 07/07/18 07/07/18 17:34 18:00 18:30 19:00 Temp 98.6 98.6 Pulse 74 64 64 64 Resp 16 25 21 16 B/P (MAP) 147/95 (112) 148/93 (111) 151/98 (115) 153/106 (122) Pulse Ox 100 98 97 97 O2 Delivery Room Air Room Air Room Air Room Air 07/07/18 07/07/18 07/07/18 07/07/18 19:30 21:27 22:40 23:06 Temp 98.2 98.2 Pulse 60 61 72 Resp 15 16 B/P (MAP) 147/97 (114) 167/98 129/83 (98) Pulse Ox 98 96 O2 Delivery Room Air Room Air Room Air 07/08/18 07/08/18 03:00 07:00 Temp 98.0 98.0 98.0 98.0 Pulse 60 55 Resp 16 18 B/P (MAP) 122/90 (101) 117/64 (81) Pulse Ox 99 96 O2 Delivery Room Air Room Air Intake and Output 07/07/18 07/07/18 07/08/18 15:00 23:00 07:00 Intake Total 240 ml 240 ml Balance 240 ml 240 ml TALYA WINN MD Jul 08, 2018 09:43
[2018-07-08 09:54] LABS: CALCIUM 8.5 mg/dL (8.5-10.1); CREATININE 0.8 mg/dL (0.7-1.3); GFR 101.1; POTASSIUM 3.6 mmol/L (3.5-5.1)
[2018-07-08 11:00] VITALS: BP 121/80
[2018-07-08 15:00] VITALS: BP 139/102
[2018-07-08 19:16] VITALS: BP 151/103
--- NOTE | 2018-07-08 21:26 | PHYS DOC ---
Past Medical History Past Medical History: Hypertension, Other Additional Past Medical Histor: ETOH and drug abuse Past Surgical History: No Surgical History Alcohol Use: None Drug Use: None Adult General Chief Complaint Chief Complaint: WITHDRAWL HPI HPI Patient is a 53 year old male who presents with alcohol withdrawal symptoms. The patient is very shaky and tearful. He states that he has been drinking large amounts of alcohol for years and needs to stop. He is requesting to speak with someone who can get him help. He states that he has had seizure activity in the past related with stopping alcohol. He states that his last intake was at approximately 8 PM last night. Review of Systems Review of Systems Constitutional: Denies fever or chills [] Eyes: Denies change in visual acuity, redness, or eye pain [] HENT: Denies nasal congestion or sore throat [] Respiratory: Denies cough or shortness of breath [] Cardiovascular: No additional information not addressed in HPI [] GI: Denies abdominal pain, nausea, vomiting, bloody stools or diarrhea [] : Denies dysuria or hematuria [] Musculoskeletal: Denies back pain or joint pain [] Integument: Denies rash or skin lesions [] Neurologic: Denies headache, focal weakness or sensory changes [] Endocrine: Denies polyuria or polydipsia [] All other systems were reviewed and found to be within normal limits, except as documented in this note. Current Medications Current Medications Current Medications Medications (Trade) Dose Ordered Sig/Becca Start Time Stop Time Status Last Admin Dose Admin Lorazepam (Ativan) 4 mg PRN Q1HR PRN 07/07/18 17:45 07/08/18 20:08 DC 07/08/18 16:51 4 MG Multivitamins 10 ml/Thiamine HCl 100 mg/Folic Acid 1 mg/Sodium Chloride 1,011.2 ml @ 100 mls/ hr DAILY 07/07/18 18:00 07/08/18 09:03 DC 07/07/18 18:10 100 MLS/HR Allergies Allergies Allergies Coded Allergies Type Severity Reaction Last Updated Verified No Known Drug Allergies 05/14/14 No Physical Exam Physical Exam Constitutional: Well developed, well nourished, no acute distress, non-toxic appearance. [] HENT: Normocephalic, atraumatic, bilateral external ears normal, oropharynx moist, no oral exudates, nose normal. [] Eyes: PERRLA, EOMI, conjunctiva normal, no discharge. [] Neck: Normal range of motion, no tenderness, supple, no stridor. [] Cardiovascular:Heart rate regular rhythm, no murmur [] Lungs & Thorax: Bilateral breath sounds clear to auscultation [] Abdomen: Bowel sounds normal, soft, no tenderness, no masses, no pulsatile masses. [] Skin: Warm, dry, no erythema, no rash. [] Back: No tenderness, no CVA tenderness. [] Extremities: No tenderness, no cyanosis, no clubbing, ROM intact, no edema. [] Neurologic: Alert and oriented X 3, normal motor function, normal sensory function, no focal deficits noted. [] Psychologic: The patient is tearful and slightly anxious] Current Patient Data Vital Signs Vital Signs Date Time Temp Pulse Resp B/P (MAP) Pulse Ox O2 Delivery O2 Flow Rate FiO2 07/07/18 18:00 64 25 148/93 (111) 98 Room Air 07/07/18 17:34 98.6 98.6 Lab Values Laboratory Tests Test 07/07/18 17:25 Urine Opiates Screen Neg (NEG) Urine Methadone Screen Neg (NEG) Urine Barbiturates Neg (NEG) Urine Phencyclidine Screen Neg (NEG) Urine Amphetamine/Methamphetamine Neg (NEG) Urine Benzodiazepines Screen Neg (NEG) Urine Cocaine Screen Neg (NEG) Urine Cannabinoids Screen Pos (NEG) Urine Ethyl Alcohol Neg (NEG) EKG EKG [] Radiology/Procedures Radiology/Procedures [] Course & Med Decision Making Course & Med Decision Making Pertinent Labs and Imaging studies reviewed. (See chart for details) [] Dragon Disclaimer Dragon Disclaimer This electronic medical record was generated, in whole or in part, using a voice recognition dictation system. Departure Departure Impression: Primary Impression: Alcohol withdrawal Disposition: ADMITTED INPATIENT Admitting Physician: Johnny Christianson Condition: GOOD Referrals: NO PCP (PCP) BILL [employer] ASSISTANT Jul 08, 2018 21:26
[2018-07-08] MEDS: traZODone 100 MG TABLET. PO SCH (23:33)
[2018-07-08 23:51] VITALS: BP 156/107
[2018-07-09] MEDS: LORazepam 1 MG TABLET PO PRN ×2 (02:03→08:02)
[2018-07-09 03:59] VITALS: BP 132/91
[2018-07-09 07:00] VITALS: BP 143/98
[2018-07-09] MEDS ORDERED: TRAZ-86 PO (08:02)
[2018-07-09] MEDS ORDERED: LORA-434 PO (08:02)
--- NOTE | 2018-07-09 08:20 | PDOC3 ---
Discharge Summary Visit Information Date of Admission: Jul 07, 2018 Date of Discharge: Jul 09, 2018 Admitting Diagnosis: EtOH withdrawl Final Diagnosis 1. ETOH ABUSE, dependence, admit with withdrawl 2. Depression, major 3. htn 4. THC abuse 5. tobacco abuse disorder 6. hx dt's Problems Medical Problems: (1) Alcohol withdrawal Status: Acute Brief Hospital Course Allergies Allergies Coded Allergies Type Severity Reaction Last Updated Verified No Known Drug Allergies 05/14/14 No Vital Signs Vital Signs Date Time Temp Pulse Resp B/P (MAP) Pulse Ox O2 Delivery O2 Flow Rate FiO2 07/09/18 03:59 97.5 66 18 132/91 (105) 96 Room Air 97.5 Lab Results Laboratory Tests Test 07/07/18 17:25 07/07/18 18:10 07/08/18 08:40 Urine Opiates Screen Neg (NEG) Urine Methadone Screen Neg (NEG) Urine Barbiturates Neg (NEG) Urine Phencyclidine Screen Neg (NEG) Urine Amphetamine/Methamphetamine Neg (NEG) Urine Benzodiazepines Screen Neg (NEG) Urine Cocaine Screen Neg (NEG) Urine Cannabinoids Screen Pos (NEG) Urine Ethyl Alcohol Neg (NEG) White Blood Count 8.4 x10^3/uL (4.0-11.0) 5.0 x10^3/uL (4.0-11.0) Red Blood Count 4.22 x10^6/uL (4.30-5.70) 4.14 x10^6/uL (4.30-5.70) Hemoglobin 13.2 g/dL (13.0-17.5) 13.1 g/dL (13.0-17.5) Hematocrit 38.6 % (39.0-53.0) 38.2 % (39.0-53.0) Mean Corpuscular Volume 92 fL (79-100) 92 fL (79-100) Mean Corpuscular Hemoglobin 31 pg (25-35) 32 pg (25-35) Mean Corpuscular Hemoglobin Concent 34 g/dL (31-37) 34 g/dL (31-37) Red Cell Distribution Width 16.2 % (11.5-14.5) 15.8 % (11.5-14.5) Platelet Count 250 x10^3/uL (140-400) 230 x10^3/uL (140-400) Neutrophils (%) (Auto) 74 % (31-73) 61 % (31-73) Lymphocytes (%) (Auto) 19 % (24-48) 29 % (24-48) Monocytes (%) (Auto) 6 % (0-9) 7 % (0-9) Eosinophils (%) (Auto) 0 % (0-3) 2 % (0-3) Basophils (%) (Auto) 1 % (0-3) 1 % (0-3) Neutrophils # (Auto) 6.2 x10^3uL (1.8-7.7) 3.0 x10^3uL (1.8-7.7) Lymphocytes # (Auto) 1.6 x10^3/uL (1.0-4.8) 1.4 x10^3/uL (1.0-4.8) Monocytes # (Auto) 0.5 x10^3/uL (0.0-1.1) 0.4 x10^3/uL (0.0-1.1) Eosinophils # (Auto) 0.0 x10^3/uL (0.0-0.7) 0.1 x10^3/uL (0.0-0.7) Basophils # (Auto) 0.1 x10^3/uL (0.0-0.2) 0.0 x10^3/uL (0.0-0.2) Sodium Level 141 mmol/L (136-145) 145 mmol/L (136-145) Potassium Level 3.6 mmol/L (3.5-5.1) 3.6 mmol/L (3.5-5.1) Chloride Level 102 mmol/L (98-107) 107 mmol/L (98-107) Carbon Dioxide Level 28 mmol/L (21-32) 30 mmol/L (21-32) Anion Gap 11 (6-14) 8 (6-14) Blood Urea Nitrogen 20 mg/dL (8-26) 14 mg/dL (8-26) Creatinine 0.9 mg/dL (0.7-1.3) 0.8 mg/dL (0.7-1.3) Estimated GFR (Cockcroft-Gault) 88.3 101.1 BUN/Creatinine Ratio 22 (6-20) Glucose Level 88 mg/dL (70-99) 89 mg/dL (70-99) Calcium Level 9.2 mg/dL (8.5-10.1) 8.5 mg/dL (8.5-10.1) Total Bilirubin 1.8 mg/dL (0.2-1.0) Aspartate Amino Transf (AST/SGOT) 29 U/L (15-37) Alanine Aminotransferase (ALT/SGPT) 29 U/L (16-63) Alkaline Phosphatase 77 U/L (46-116) Ammonia 12 mcmol/L (11-34) Total Protein 7.3 g/dL (6.4-8.2) Albumin 3.7 g/dL (3.4-5.0) Albumin/Globulin Ratio 1.0 (1.0-1.7) Ethyl Alcohol Level < 10 mg/dL (0-10) Laboratory Tests Test 07/08/18 08:40 White Blood Count 5.0 x10^3/uL (4.0-11.0) Red Blood Count 4.14 x10^6/uL (4.30-5.70) Hemoglobin 13.1 g/dL (13.0-17.5) Hematocrit 38.2 % (39.0-53.0) Mean Corpuscular Volume 92 fL (79-100) Mean Corpuscular Hemoglobin 32 pg (25-35) Mean Corpuscular Hemoglobin Concent 34 g/dL (31-37) Red Cell Distribution Width 15.8 % (11.5-14.5) Platelet Count 230 x10^3/uL (140-400) Neutrophils (%) (Auto) 61 % (31-73) Lymphocytes (%) (Auto) 29 % (24-48) Monocytes (%) (Auto) 7 % (0-9) Eosinophils (%) (Auto) 2 % (0-3) Basophils (%) (Auto) 1 % (0-3) Neutrophils # (Auto) 3.0 x10^3uL (1.8-7.7) Lymphocytes # (Auto) 1.4 x10^3/uL (1.0-4.8) Monocytes # (Auto) 0.4 x10^3/uL (0.0-1.1) Eosinophils # (Auto) 0.1 x10^3/uL (0.0-0.7) Basophils # (Auto) 0.0 x10^3/uL (0.0-0.2) Sodium Level 145 mmol/L (136-145) Potassium Level 3.6 mmol/L (3.5-5.1) Chloride Level 107 mmol/L (98-107) Carbon Dioxide Level 30 mmol/L (21-32) Anion Gap 8 (6-14) Blood Urea Nitrogen 14 mg/dL (8-26) Creatinine 0.8 mg/dL (0.7-1.3) Estimated GFR (Cockcroft-Gault) 101.1 Glucose Level 89 mg/dL (70-99) Calcium Level 8.5 mg/dL (8.5-10.1) Brief Hospital Course Mr. Cavazos is a 53 old ADMIT for EtOH intox, dependence and symptoms of withdrawl when trying to quit. Ativan 2 days, MVI, thiamina, banana bag and support, then much better, HR better, ambulatory, he had stopped EtOH as he desires to quit, has moved in with his father recently, and there is an AA meeting that is within walking distance. a Discharge Information Condition at Discharge: Improved Follow Up: Weeks Disposition/Orders: D/C to Home Scheduled Naproxen (Naproxen) 500 Mg Tablet., 1 TAB PO BID, #60 Ref 2 Prescribed by: Anais Anderson APRN on 04/16/171836 Last Action: HELD on 07/07/182113 by SPENCER ZAVALETA MD Trazodone Hcl (Trazodone Hcl) 100 Mg Tablet, 100 MG PO QHS, #30 Ref 1 Prescribed by: TALYA WINN on 07/09/18 0802 Scheduled PRN Chlordiazepoxide Hcl (Chlordiazepoxide Hcl) 10 Mg Capsule, 10 MG PO Q6-8HRS PRN for ALCOHOL WITHDRAWAL, #20 As needed for symptoms of alcohol withdrawal Do not drink alcohol or drive while taking this medication Prescribed by: SANAM MATTHEWS MD on 02/03/17 145 Last Action: HELD on 07/07/182113 by SPENCER ZAVALETA MD Lorazepam (Ativan) 1 Mg Tablet, 1 MG PO BID PRN for ANXIETY / AGITATION, #20 Prescribed by: TALYA WINN on 07/09/18 0802 Miscellaneous Medications Info (No Known Medications Prior To Admisstion) Each, 1 EACH MC, (Reported) Entered as Reported by: JOSE GUADARRAMA on 05/14/14 1857 Patient Instructions Patient Instructions > 30 min TALYA WINN MD Jul 09, 2018 08:20
[2018-07-09] MEDS: NICOTINE 21MG PATCH. TD SCH (09:14)
[2018-07-09] MEDS: PANTOPRAZOLE IV PUSH 40 MG VIAL. IVP SCH (09:15)
[2018-07-12] MEDS ORDERED: FOLIC ACID 1 MG TABLET. PO SCH (09:00)
[2018-07-12] MEDS ORDERED: MULTIVITAMIN with MINERAL TABLET. PO SCH (09:00)
[2018-07-12] MEDS ORDERED: THIAMINE 100 MG TABLET. PO SCH (09:00)
== END 2018-07-09 09:45 | disposition home or self-care (01) | DRG 897 ==
LOC: ER 15:52 → 5 SOUTH 18:09
PROVIDERS: ADMIT Family Medicine; ATTEND Family Medicine
DX: F10.239 Alcohol dependence with withdrawal, unspecified (principal); F10.229 Alcohol dependence with intoxication, unspecified; Y90.0 Blood alcohol level of less than 20 mg/100 ml; F12.10 Cannabis abuse, uncomplicated; F17.210 Nicotine dependence, cigarettes, uncomplicated; F41.9 Anxiety disorder, unspecified; F32.9 Major depressive disorder, single episode, unspecified; I10 Essential (primary) hypertension; K21.9 Gastro-esophageal reflux disease without esophagitis; Z81.8 Family history of other mental and behavioral disorders; Z79.899 Other long term (current) drug therapy
CPT/HCPCS: 36415; 80048; 80053; 80307; 82140; 85025; 90471; 90756; 96365; C9113; G0480; J2060; J7030; 99285-25; G0479; Q2035

== ENCOUNTER 2020-01-28 13:15 | Emergency (ER) | payer SELFPAY ==
[~2020-01-28] VITALS: Ht 185.4 cm; Wt 77.2 kg
[~2020-01-28 13:15] MED LIST changes: +LORA-434 PO; +TRAZ-123 PO
[2020-01-28] MEDS ORDERED: HYDROcodone/APAP 5/325MG 1 TAB TABLET PO ONE (14:00)
--- NOTE | 2020-01-28 14:20 | RAD ---
FOOT LEFT 3V, ANKLE LEFT 3V DATE: 01/28/2020 1:42 PM INDICATION: Injury, pain COMPARISON: None. FINDINGS: Acute oblique fracture of the lateral malleolus extending superolaterally from the level of the syndesmosis. Mild lateral and posterior displacement of the lateral malleolus relative to the proximal fibula. Slight widening of the medial clear space, measuring 5 mm. IMPRESSION: Acute mildly displaced lateral malleolus fracture. Slight widening of the medial clear space measuring 5 mm. Electronically signed by: Sarabjit Corbin MD (01/28/2020 2:17 PM) [id number]
--- NOTE | 2020-01-28 14:30 | PHYS DOC ---
Past Medical History Past Medical History: Hypertension, Other Additional Past Medical Histor: ETOH and drug abuse Past Surgical History: No Surgical History Smoking Status: Current Every Day Smoker Additional Information: 1 PPD Alcohol Use: Heavy Additional Information: 1 [employer] [place] DAILY Drug Use: None General Adult EDM: Chief Complaint: FOOT INJURY PAIN HPI: HPI: Patient is a 54 year old male who presents to the emergency department with complaints of left lateral ankle and foot pain. Patient states that he was walking this morning when he accidentally stepped into a hole and injured himself. He denies any numbness, tingling, or weakness of the affected extremity. He currently rates pain a 10 out of 10 on pain scale, patient denies taking any medication prior to arrival. Review of Systems: Review of Systems: Complete ROS is negative unless otherwise noted in HPI. Heart Score: Risk Factors: Risk Factors: DM, Current or recent (<one month) smoker, HTN, HLP, family history of CAD, obesity. Risk Scores: Score 0 - 3: 2.5% MACE over next 6 weeks - Discharge Home Score 4 - 6: 20.3% MACE over next 6 weeks - Admit for Clinical Observation Score 7 - 10: 72.7% MACE over next 6 weeks - Early Invasive Strategies Current Medications: Current Medications Medications (Trade) Dose Ordered Sig/Becca Start Time Stop Time Status Last Admin Dose Admin Acetaminophen/ Hydrocodone Bitart (Lortab 5/325) 1 tab 1X ONCE 01/28/20 14:00 01/28/20 14:01 DC 01/28/20 13:56 1 TAB Allergies: Allergies: Allergies Coded Allergies Type Severity Reaction Last Updated Verified No Known Drug Allergies 05/14/14 No Physical Exam: PE: Constitutional: Well developed, well nourished, no acute distress, non-toxic appearance. [] HENT: Normocephalic, atraumatic, bilateral external ears normal, nose normal. [] Eyes: PERRLA, EOMI, conjunctiva normal, no discharge. [] Neck: Normal range of motion, no stridor. [] Cardiovascular:Heart rate regular rhythm Lungs & Thorax: Respirations even and unlabored, no retractions, no respiratory distress [] Skin: Warm, dry, no erythema, no rash. [] Extremities: Lateral Left ankle TTP with 2+ edema, L proximal lateral foot TTP, no crepitus, no cyanosis, no clubbing, ROM intact, no edema. [] Neurologic: Alert and oriented X 3, no focal deficits noted. [] Psychologic: Affect normal, judgement normal, mood normal. [] Current Patient Data: Vital Signs: Vital Signs Date Time Temp Pulse Resp B/P (MAP) Pulse Ox O2 Delivery O2 Flow Rate FiO2 01/28/20 13:56 18 95 Room Air 01/28/20 13:26 98.1 93 151/102 (118) 98.1 EKG: EKG: [] Radiology/Procedures: Radiology/Procedures: PROCEDURE: ANKLE LEFT 3V FOOT LEFT 3V, ANKLE LEFT 3V DATE: 01/28/2020 1:42 PM INDICATION: Injury, pain COMPARISON: None. FINDINGS: Acute oblique fracture of the lateral malleolus extending superolaterally from the level of the syndesmosis. Mild lateral and posterior displacement of the lateral malleolus relative to the proximal fibula. Slight widening of the medial clear space, measuring 5 mm. IMPRESSION: Acute mildly displaced lateral malleolus fracture. Slight widening of the medial clear space measuring 5 mm.[] Course & Med Decision Making: Course & Med Decision Making Pertinent Labs and Imaging studies reviewed. (See chart for details) [address] Deras will place patient in a stirrup splint. And offer patient admission for treatment of fracture. If patient does not want to be admitted will have patient follow-up in office this week. Advised the patient of his fractured ankle and need for surgical repair. I off ered the patient admission to the hospital however he declined and stated he would prefer to follow-up outpatient. Prescription written for hydrocodone. Patient given Dr. Deras's information for follow-up an return precautions. Pt verbalized an understanding of home care, medications, follow-up, and return to ED instructions and was in agreement with the plan of care. [] Dragon Disclaimer: Dragon Disclaimer: This electronic medical record was generated, in whole or in part, using a voice recognition dictation system. Departure Departure Impression: Primary Impression: Fracture of left ankle, lateral malleolus Qualified Codes: S82.62XA - Displaced fracture of lateral malleolus of left fibula, initial encounter for closed fracture Disposition: HOME, SELF-CARE Condition: STABLE Referrals: NO PCP (PCP) LEIDY DERAS II, MD Patient Instructions: Ankle Fracture, [id number] Additional Instructions: Fill prescription(s) and use as directed. Recommend application of ice, elevation, and rest of affected extremity. Wear the splint that was placed and use your crutches until follow up appointment. Follow-up with Dr. Deras this week. Return to the ER if your symptoms worsen. Scripts Hydrocodone Bit/Acetaminophen (HYDROCODONE-APAP 5-325 ) 1 Tab Tablet 1 TAB PO PRN Q6HRS PRN for PAIN for 5 Days, #20 TAB 0 Refills Prov: ULYSSES RAMIREZ APRN 01/28/20 Splinting Splinting : Location: [facility] Hand-Made Type: orthoglass (stirrup splint) Pre-Proc Neuro Vasc Exam: normal Post-Proc Neuro Vasc Exam: normal, unchanged from pre-exam Progress Splint was placed by myself and Taurus GOMEZ. Pt tolerated procedure well. ULYSSES RAMIREZ APRN Jan 28, 2020 14:30
[2020-01-28] MEDS ORDERED: HYDR-2761 PO (15:11)
[2020-01-28 15:39] VITALS: BP 144/105
== END 2020-01-28 15:41 | disposition home or self-care (01) ==
LOC: ER 13:15
DX: S82.62XA Displaced fracture of lateral malleolus of left fibula, initial encounter for closed fracture (principal); I10 Essential (primary) hypertension; F17.200 Nicotine dependence, unspecified, uncomplicated; F10.10 Alcohol abuse, uncomplicated; W01.0XXA Fall on same level from slipping, tripping and stumbling without subsequent striking against object, initial encounter; Y93.89 Activity, other specified; Y92.89 Other specified places as the place of occurrence of the external cause; Y99.8 Other external cause status
CPT/HCPCS: 29515; 73610; 73630; 99284